=== PATIENT | male | born 1980 | race Two or more races ===

== ENCOUNTER 2021-08-22 10:10 | Outpatient (CLI) | payer OTHER | END 2021-08-22 10:30 | disposition home or self-care (01) | LOC: PPH VACUNA 10:10 | PROVIDERS: ATTEND Emergency Medicine Pediatric Emergency Medicine | DX: Z23 Encounter for immunization (principal) ==

== ENCOUNTER 2023-04-27 10:01 | Emergency (ER) | payer OTHER ==
[~2023-04-27] VITALS: Ht 170.2 cm; Wt 135.2 kg
== END 2023-04-27 14:11 | disposition home or self-care (01) ==
LOC: ER 10:01
DX: J10.1 Influenza due to other identified influenza virus with other respiratory manifestations (principal); Z20.822 Contact with and (suspected) exposure to COVID-19; Z88.8 Allergy status to other drugs, medicaments and biological substances

== ENCOUNTER 2024-04-18 14:58 | Emergency (ER) | payer OTHER ==
[~2024-04-18] VITALS: Ht 170.2 cm; Wt 135.2 kg
[2024-04-18] MEDS ORDERED: KETOROLAC TROMETHAMINE 30 MG VIAL IM STA (16:53)
[2024-04-18] MEDS ORDERED: KETOROLAC TROMETHAMINE 30 MG VIAL ONE (17:05)
[2024-04-18] MEDS ORDERED: DICLOFENAC POTA50 MG PO (20:00)
== END 2024-04-18 21:21 | disposition home or self-care (01) ==
LOC: ER 14:58
DX: S93.491A Sprain of other ligament of right ankle, initial encounter (principal); W10.0XXA Fall (on)(from) escalator, initial encounter; Y93.89 Activity, other specified; Y92.89 Other specified places as the place of occurrence of the external cause; J45.909 Unspecified asthma, uncomplicated; Z88.8 Allergy status to other drugs, medicaments and biological substances

== ENCOUNTER 2024-05-29 07:03 | Outpatient (CLI) | payer OTHER ==
[~2024-05-29 07:03] MED LIST: DICLOFENAC POTA50 MG PO
== END 2024-05-29 07:30 | disposition home or self-care (01) ==
LOC: MRI 07:03
PROVIDERS: ATTEND Orthopaedic Surgery
DX: M76.61 Achilles tendinitis, right leg (principal)
CPT/HCPCS: 73718